=== PATIENT | female | born 1985 | race Two or more races ===

== ENCOUNTER 2018-04-13 23:20 | Emergency (ER) | payer SELFPAY ==
[~2018-04-13] VITALS: Ht 157.5 cm; Wt 81.6 kg
[2018-04-13 23:35] VITALS: BP 150/77
[2018-04-13] MEDS ORDERED: oxyCODONE/APAP 7.5/325 1 TAB TABLET PO ONE (23:45)
[2018-04-14] MEDS ORDERED: OXYC-323 PO (00:23)
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
== END 2018-04-14 01:40 | disposition home or self-care (01) ==
LOC: ER 23:20
DX: S82.851A Displaced trimalleolar fracture of right lower leg, initial encounter for closed fracture (principal); S82.831A Other fracture of upper and lower end of right fibula, initial encounter for closed fracture; X58.XXXA Exposure to other specified factors, initial encounter; Y93.89 Activity, other specified; Y92.89 Other specified places as the place of occurrence of the external cause; Y99.8 Other external cause status
CPT/HCPCS: 29505; 73562; 73590; 73610; 99284